=== PATIENT | male | born 1925 | race Caucasian/White ===

== ENCOUNTER 2016-08-25 17:21 | Emergency (ER) | payer MEDICARE, OTHER ==
[2016-08-25 17:21] VITALS: BMI 18.6
[2016-08-25 17:34] VITALS: TEMP 97.5
[2016-08-25 18:14] LABS: AUTOMATED BASOPHIL 0.4 % (0-2); AUTOMATED EOSINOPHIL 4.2 % (0-5); AUTOMATED NEUTROPHIL 59.4 % (45-76); MPV 10.7 fL (7.4-10.4)
[2016-08-25] MEDS ORDERED: ONDANSETRON HCL 4 MG/2 ML VIAL IV ONE (18:23)
[2016-08-25] MEDS ORDERED: NS 1,000 ML IV ONE (18:23)
[2016-08-25 18:29] LABS: BLOOD UREA NITROGEN 26 MG/DL (9-20); CALCIUM 9.2 MG/DL (8.4-10.2); CALCULATED OSMOLALITY 276 MOs/Kg (270-290); CHLORIDE 99 mEq/L (98-107); GLUCOSE 107 MG/DL (70-99); SODIUM LEVEL 141 mEq/L (137-146)
[2016-08-25 18:34] LABS: LEUKOCYTES/URINE NEG (NEGATIVE); NITRITE/URINE NEG (NEGATIVE); URINE OCCULT BLOOD NEG (NEG/TRACE); WBC/URINE 0-2 (0-2)
--- NOTE | 2016-08-25 18:34 | EDPRACDOC ---
- General Information Information Source: Patient, Mcc, Advanced Practice Psychiatric Nurse - History of Present Illness Onset: just CLINICAL CARE MANAGER HPI: PT PRESENTS FROM A LOCAL NURSING FACILITY DUE TO NAUSEA AND VOMITING. PT HAS ADVANCED ALZHEIMER'S AND IS UNABLE TO ANSWER QUESTIONS ABOUT TODAY'S ILLNESS. PT STATES "I ATE A GOOD BREAKFAST, AND I'M FEELING PRETTY GOOD." NO VOMITING SINCE ARRIVAL TO THE ED. NO ACUTE DISTRESS NOTED. Symptoms Occured: Reports: Spontaneous Duration: Reports: Intermittent Emesis: Reports: Bilious Recent: Reports: Contact Exposure Pain Quality: Denies: Aching, N, Burning, Colicky, Cramping, Sharp, Stabbing, Knife-like, O Pain Severity: None Pain Location: Denies: Diffuse, Epigastric, RUQ, LUQ, RLQ, LLQ, Periumbilical, Suprapubic, Generalized abdomen, Flank, O Relevant History of: Denies: Abdominal Surgery, Diabetes, Contact Exposure, Hydrocephalus, HIV, Immunosuppression, Irritable Bowel Disease, Cystic Fibrosis , Lactose Intolerance, None, O Associated Signs and Symptoms: Denies: Fever, Chills, Nausea, Vomiting, Diarrhea , Anorexia, Hematemesis, Melena, Dysuria, Frequency, Urgency, Hematuria, Hematochezia, O Oral Intake: Decreased Urinary Output: Normal <Jacklyn Downey W - Last Filed: 08/25/16 20:34> <Francia Mcneil - Last Filed: 08/25/16 22:09> - General Information Chief Complaint: Nausea,Vomiting,Diarrhea Stated Complaint: N/V Time Seen by Provider: 08/25/16 18:16 Home Medications: Home Medications Metoprolol Tartrate [Lopressor] 12.5 mg PO BID 12/02/12 Atorvastatin Calcium [Lipitor] 10 mg PO QHS 02/08/16 CITALOPRAM (anti-depressant) [Celexa] 5 mg PO DAILY 02/08/16 Donepezil HCl 5 mg PO QHS 02/08/16 Fluticasone Propionate [Flonase] 1 spray ALYCIA BID 02/08/16 Ibuprofen Tablet [Advil] 200 mg PO BID PRN 02/08/16 Levothyroxine [Synthroid, Levoxyl] 62.5 mcg PO DAILY 02/08/16 Loperamide HCl [Imodium A-D] 2 mg PO . NEEDED PRN 02/08/16 Loratadine [Claritin] 10 mg PO DAILY PRN 02/08/16 Mineral Oil [Mineral Oil Heavy] 2 drop AU Q7D 02/08/16 Ranitidine [Zantac] 150 mg PO BID 02/08/16 Aspirin (OrangeEnteric Coated) [Ecotrin] 325 mg PO BIDWM #60 tablet 02/11/16 Calcium Carbonate + Vitamin D [Oscal with Vitamin D] 500 mg PO BIDLS #60 tablet 02/11/16 Docusate-Senna Concentrate [Senokot S or Carmen Colace] 2 tab PO HS #60 tablet Tramadol HCl [Ultram] 50 mg PO Q6H PRN #20 tablet 02/12/16 Ondansetron [Zofran Odt] 4 mg PO Q6H PRN #20 tab.rapdis 08/25/16 Allergies/Adverse Reactions: Allergies Allergy/AdvReac Type Severity Reaction Status Date / Time No Known Allergies Allergy Verified 11/21/14 22:08 - Treatment Prior to ED Arrival Reported Medications/Treatment CLINICAL CARE MANAGER EMS Treatment BLS <Jacklyn Downey - Last Filed: 08/25/16 20:34> - Treatment Prior to ED Arrival Reported Medications/Treatment CLINICAL CARE MANAGER EMS Treatment BLS <Francia Mcneil - Last Filed: 08/25/16 22:09> ED Past Medical History - History Reviewed Yes Nurses notes reviewed and agree except as marked - Patient Medical History Neurological History: Reports: Dementia (Advanced Alzheimer 's dementia) Cardiac History: Reports: Coronary Artery Disease, Hypertension, Heart Attack ( STENTS), Cardiac Catheterization, Hypercholesterolemia (Dyslipidemia) GI/ History: Reports: Gastroesophageal Reflux Psychological History: Denies: Depression, Substance Use Disorder Systemic History: Reports: Cancer, Hypothyroidism Surgical History: Reports: Cardiac Catheterization, Tonsillectomy/Adnoidectomy - Family Medical History Reports: Hypertension, Diabetes, Cancer (BONE,PROSTATE). Denies: Stroke, Cardiac Disorders - Social Medical History Smoking Status: Never smoker Social History: Denies: Substance Use Disorder <Jacklyn Downey - Last Filed: 08/25/16 20:34> EDM Review of Systems - Review of Systems ROS Negative Except as Marked: Yes All systems reviewed and were negative except as marked <Jacklyn Downey - Last Filed: 08/25/16 20:34> - Physical Exam Constitutional: Alert, Confused (PER PT NORM) Oriented to: Not Oriented (PER PT NORM) Last recorded Vital Signs: Last Vital Signs Temp 97.5 F 08/25/16 17:33 Pulse 85 08/25/16 17:39 Resp 18 08/25/16 17:39 BP 119/69 08/25/16 17:39 Pulse Ox 96 08/25/16 17:39 Oxygen Pulse Oxygen Saturation 96 O2 Device Oxygen Flow Rate Fraction of Inspired Oxygen ( FIO2) - HEENT Head: Normal ( normocephalic) Eye Exam: Normal (PERRL, EOMI, Sclera white) Oropharynx: Normal (Pharynx:Moist without exudate,Gums-no swelling) Nose: No Symptoms Reported (septum midline) Neck: Normal (FROM, trachea at midline) - Respiratory/Cardiovascular Respiratory: Normal - CTA (BBS clear to auscultation without adventitious sounds ) Cardiovascular: Normal (RRR without murmur, gallop or rub) - GI Auscultation: Normal (NABS) Palpation: Normal (Soft,No rebound or guarding, non distended) Tenderness: Non tender Serrano's Sign: Negative Rectal Exam: Deferred - Musculoskeletal Back: Normal (Non-Tender) Extremities: Normal (Normal tone, Pulses 2+ No cyanosis or edema, FROM) - Integumentary Skin: Normal, Warm, Dry Lymphatics: Normal (no adenopathy) - Neurologic Memory Impaired: Normal Motor Function: Normal (Normal tone, Pulses 2+ No cyanosis or edema, FROM) Cranial Nerve: Normal (CN II-X11 intact sensation, strength 5/5) Cerebellar: Normal Mood Description: Normal Perception: Normal <Jacklyn Downey W - Last Filed: 08/25/16 20:34> - Physical Exam Last recorded Vital Signs: Last Vital Signs Temp 97.5 F 08/25/16 17:33 Pulse 76 08/25/16 21:00 Resp 20 08/25/16 21:00 BP 114/63 08/25/16 21:00 Pulse Ox 96 08/25/16 21:00 Oxygen Pulse Oxygen Saturation 96 O2 Device Room Air Oxygen Flow Rate Fraction of Inspired Oxygen ( FIO2) <Francia Mcneil - Last Filed: 08/25/16 22:09> - Differential Diagnosis Gastroenteritis, Urinary tract infection - Re-evaluation Re-evaluation 1 Re-evaluation Time: 19:59 (PT RESTING COMFORTABLY, SLEEPING, IN NO ACUTE DISTRESS. VSS) - Results 08/25/16 17:55 08/25/16 17:55 WBC 10.0 xk/uL (3.8-10.8) 08/25/16 17:55 RBC 4.23 xM/uL (4.70-6.10) L 08/25/16 17:55 Hgb 13.5 g/dL (14.0-18.0) L 08/25/16 17:55 Hct 40.0 % (42-52) L 08/25/16 17:55 MCV 95 fL (80-94) H 08/25/16 17:55 MCH 31.9 pg (27-32) 08/25/16 17:55 MCHC 33.8 g/dl (33-36) 08/25/16 17:55 RDW 12.9 % (11.5-14.5) 08/25/16 17:55 Plt Count 162 xk/uL (130-400) 08/25/16 17:55 MPV 10.7 fL (7.4-10.4) H 08/25/16 17:55 Neut % (Auto) 59.4 % (45-76) 08/25/16 17:55 Lymph % (Auto) 27.0 % (17-44) 08/25/16 17:55 [place] % (Auto) 9.0 % (3-10) 08/25/16 17:55 Eos % (Auto) 4.2 % (0-5) 08/25/16 17:55 Baso % (Auto) 0.4 % (0-2) 08/25/16 17:55 Absolute Neuts (auto) 5.90 xk/uL (1.7-8.2) 08/25/16 17:55 Absolute Lymphs (auto) 2.70 xk/uL (0.65-4.75) 08/25/16 17:55 Lab Results 08/25/16 17:55 WBC 10.0 RBC 4.23 L Hgb 13.5 L Hct 40.0 L MCV 95 H MCH 31.9 MCHC 33.8 RDW 12.9 Plt Count 162 MPV 10.7 H Neut % (Auto) 59.4 Lymph % (Auto) 27.0 [place] % (Auto) 9.0 Eos % (Auto) 4.2 Baso % (Auto) 0.4 Absolute Neuts (auto) 5.90 Absolute Lymphs (auto) 2.70 <ShayanJacklyn W - Last Filed: 08/25/16 20:34> - Re-evaluation Re-evaluation 3 Re-evaluation Time: 21:45 (PT COMFORTABLE, ABD BENIGN, LUNGS CTA) - Results 08/25/16 17:55 08/25/16 17:55 WBC 10.0 xk/uL (3.8-10.8) 08/25/16 17:55 RBC 4.23 xM/uL (4.70-6.10) L 08/25/16 17:55 Hgb 13.5 g/dL (14.0-18.0) L 08/25/16 17:55 Hct 40.0 % (42-52) L 08/25/16 17:55 MCV 95 fL (80-94) H 08/25/16 17:55 MCH 31.9 pg (27-32) 08/25/16 17:55 MCHC 33.8 g/dl (33-36) 08/25/16 17:55 RDW 12.9 % (11.5-14.5) 08/25/16 17:55 Plt Count 162 xk/uL (130-400) 08/25/16 17:55 MPV 10.7 fL (7.4-10.4) H 08/25/16 17:55 Neut % (Auto) 59.4 % (45-76) 08/25/16 17:55 Lymph % (Auto) 27.0 % (17-44) 08/25/16 17:55 [place] % (Auto) 9.0 % (3-10) 08/25/16 17:55 Eos % (Auto) 4.2 % (0-5) 08/25/16 17:55 Baso % (Auto) 0.4 % (0-2) 08/25/16 17:55 Absolute Neuts (auto) 5.90 xk/uL (1.7-8.2) 08/25/16 17:55 Absolute Lymphs (auto) 2.70 xk/uL (0.65-4.75) 08/25/16 17:55 Sodium 141 mEq/L (137-146) 08/25/16 17:55 Potassium 4.4 mEq/L (3.5-5.1) 08/25/16 17:55 Chloride 99 mEq/L (98-107) 08/25/16 17:55 Carbon Dioxide 30 mMOL/L (22-33) 08/25/16 17:55 Anion Gap 16 mEq/L (8-16) 08/25/16 17:55 BUN 26 MG/DL (9-20) H 08/25/16 17:55 Creatinine 1.00 MG/DL (0.66-1.25) 08/25/16 17:55 Estimated GFR (MDRD) > 60 mL/min (>=60) 08/25/16 17:55 Glucose 107 MG/DL (70-99) H 08/25/16 17:55 Calculated Osmolality 276 MOs/Kg (270-290) 08/25/16 17:55 Calcium 9.2 MG/DL (8.4-10.2) 08/25/16 17:55 Total Bilirubin 0.7 MG/DL (0.2-1.3) 08/25/16 17:55 AST 23 IU/L (17-59) 08/25/16 17:55 ALT 26 IU/L (21-72) 08/25/16 17:55 Alkaline Phosphatase 61 IU/L (50-160) 08/25/16 17:55 Total Protein 7.0 G/DL (6.3-8.2) 08/25/16 17:55 Albumin 4.2 G/DL (3.5-5.0) 08/25/16 17:55 Amylase 142 IU/L (30-110) H 08/25/16 17:55 Lipase 164 U/L (23-300) 08/25/16 17:55 Urine Color [place] 08/25/16 18:20 Urine Clarity Clear 08/25/16 18:20 Urine pH 6.0 (5.0-8.0) 08/25/16 18:20 Ur Specific [place] 1.030 (1.003-1.035) 08/25/16 18:20 Urine Protein 1+ (NEG/TRACE) H 08/25/16 18:20 Urine Glucose (UA) Neg (NEGATIVE) 08/25/16 18:20 Urine Ketones Neg (NEGATIVE) 08/25/16 18:20 Urine Occult Blood Neg (NEG/TRACE) 08/25/16 18:20 Urine Nitrite Neg (NEGATIVE) 08/25/16 18:20 Urine Bilirubin Neg (NEGATIVE) 08/25/16 18:20 Urine Urobilinogen <2.0 MG/DL (0-1) 08/25/16 18:20 Ur Leukocyte Esterase Neg (NEGATIVE) 08/25/16 18:20 Urine RBC 2-5 (0-2) H 08/25/16 18:20 Urine WBC 0-2 (0-2) 08/25/16 18:20 Urine Bacteria Few (NEG/FEW) 08/25/16 18:20 Urine Mucus Sm amt (NEG/OCC) 08/25/16 18:20 Microbiology 08/25/16 20:05 Influenza Type A Antigen Screen - Final N/P - Naso/Pharyngeal NEGATIVE Please note: A NEGATIVE result does not exclude an influenza virus infection. It is a presumptive result and, if required, confirmation should be done using either a virus culture or an FDA-cleared influenza A&B molecular assay. ("NORMAL" value = "NEGATIVE".) Influenza Type B Antigen Screen - Final NEGATIVE Please note: A NEGATIVE result does not exclude an influenza virus infection. It is a presumptive result and, if required, confirmation should be done using either a virus culture or an FDA-cleared influenza A&B molecular assay. ("NORMAL" value = "NEGATIVE".) Lab Results 08/25/16 08/25/16 08/25/16 18:20 17:55 17:55 WBC 10.0 RBC 4.23 L Hgb 13.5 L Hct 40.0 L MCV 95 H MCH 31.9 MCHC 33.8 RDW 12.9 Plt Count 162 MPV 10.7 H Neut % (Auto) 59.4 Lymph % (Auto) 27.0 [place] % (Auto) 9.0 Eos % (Auto) 4.2 Baso % (Auto) 0.4 Absolute Neuts (auto) 5.90 Absolute Lymphs (auto) 2.70 Sodium 141 Potassium 4.4 Chloride 99 Carbon Dioxide 30 Anion Gap 16 BUN 26 H Creatinine 1.00 Estimated GFR (MDRD) > 60 Glucose 107 H Calculated Osmolality 276 Calcium 9.2 Total Bilirubin 0.7 AST 23 ALT 26 Alkaline Phosphatase 61 Total Protein 7.0 Albumin 4.2 Amylase 142 H Lipase 164 Urine Color [place] Urine Clarity Clear Urine pH 6.0 Ur Specific [place] 1.030 Urine Protein 1+ H Urine Glucose (UA) Neg Urine Ketones Neg Urine Occult Blood Neg Urine Nitrite Neg Urine Bilirubin Neg Urine Urobilinogen <2.0 Ur Leukocyte Esterase Neg Urine RBC 2-5 H Urine WBC 0-2 Urine Bacteria Few Urine Mucus Sm amt <Francia Mcneil - Last Filed: 08/25/16 22:09> Decision Time to Discharge: 20:34 - Departure Disposition: Home Education/Counseling Given To: Patient, [employer] Education/Counseling Given Regarding: Diagnosis, Treatment, Prognosis, Follow Up <Jacklyn Downey - Last Filed: 08/25/16 20:34> <Francia Mcneil - Last Filed: 08/25/16 22:09> - Departure Condition: Stable Final Diagnosis: Nausea and vomiting Instructions: Acute Nausea and Vomiting (ED) Referrals: Sienna Bucio MD [Primary Care Provider] - One Week Prescriptions: Ondansetron [Zofran Odt] 4 mg PO Q6H PRN #20 tab.rapdis PRN Reason: Nausea/Vomiting Additional Instructions: FOLLOW UP WITH PCP NEXT WEEK. RETURN TO THE ED FOR WORSENING SYMPTOMS OR CONCERNS
--- NOTE | 2016-08-25 19:08 | DIRPT ---
CLINICAL DATA: Weakness and vomiting EXAM: CHEST 2 VIEW COMPARISON: Chest radiograph 02/08/2016 FINDINGS: There is chronic elevation of the LEFT hemidiaphragm. Normal cardiac silhouette. No effusion, infiltrate, pneumothorax. LEFT basilar atelectasis. Nipple shadow at the RIGHT lung base. IMPRESSION: Chronic elevation of LEFT hemidiaphragm with associated atelectasis. Electronically Signed By: Aj Gordon M.D. On: 08/25/2016 19:06
[2016-08-25 21:01] VITALS: BP 114/63; PULSE 76
== END 2016-08-25 21:00 | disposition short-term general hospital (02) ==
LOC: ED 17:21
DX: R11.2 Nausea with vomiting, unspecified (principal)
CPT/HCPCS: 36415; 71020; 80053; 81001; 82150; 83690; 85025; 87804; 96361; 96374; 99284; J2405